=== PATIENT | male | born 1990 | race Caucasian/White ===

== ENCOUNTER 2017-03-20 10:09 | Emergency (ER) | payer MEDICAID ==
[~2017-03-20] VITALS: Ht 175.3 cm; Wt 100.2 kg
[2017-03-20 10:44] VITALS: Ht 175.3 cm; Wt 100.2 kg
[2017-03-20 11:37] VITALS: BP 108/63
== END 2017-03-20 11:36 | disposition home or self-care (01) ==
LOC: ED 10:09
DX: J11.1 Influenza due to unidentified influenza virus with other respiratory manifestations (principal)